=== PATIENT | male | born 1960 | race Hispanic/Latino ===

== ENCOUNTER 2018-11-16 17:39 | Emergency (ER) | payer OTHER ==
[~2018-11-16] VITALS: Ht 165.1 cm; Wt 68.0 kg
--- NOTE | 2018-11-16 21:07 | EKG ---
[facility] [address] [facility] [place], [place] [address] Signed Poor data quality, interpretation may be adversely affected Normal sinus rhythm Prolonged QT Abnormal ECG No previous ECGs available Confirmed by CORNELIO MONTOYA MD ([id number]) on 11/16/2018 9:07:17 PM Electronically Signed By: CORNELIO MONTOYA MD 11/16/18 2107 PATIENT NAME: NITISH MORGAN Electrocardiogram DATE OF : [birth year] PHYSICIAN: CORNELIO MONTOYA MD REPORT #: [id number] REPORT IS CONFIDENTIAL AND NOT TO BE RELEASED WITHOUT AUTHORIZATION
== END 2018-11-16 21:00 | disposition left against medical advice (07) ==
LOC: ED 17:39 → EDBD 17:41 → ED 21:00
DX: R07.89 Other chest pain (principal); F10.10 Alcohol abuse, uncomplicated; M54.9 Dorsalgia, unspecified; M79.602 Pain in left arm; M79.601 Pain in right arm; M79.605 Pain in left leg; M79.604 Pain in right leg; F17.200 Nicotine dependence, unspecified, uncomplicated; Z88.0 Allergy status to penicillin
CPT/HCPCS: 93005; 93010; 99283-25

== ENCOUNTER 2018-11-18 18:07 | Emergency (ER) | payer OTHER ==
[~2018-11-18] VITALS: Ht 165.1 cm; Wt 81.7 kg
--- OUTSIDE RECORDS SUMMARY | 2018-11-18 18:14 | XMS ---
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 - Patient verbally threatened care providers, staff or other patients. CRITERIA MET - 6 ED Visits in 6 Months - [facility] - Has Care Guidelines - [facility] - 3 Facilities in 90 Days - [facility] - 2 Visits in 30 Days CARE PROVIDERS CAITLYN DAWKINS [facility] Current PHONE: Unknown [facility]: [phone] [facility] Current PHONE: [phone] [facility] Current PHONE: Unknown [facility] PHONE: Unknown raymundo daniel Narcotics Prescriber Current PHONE: [phone] Guidelines Source: [facility] Guidelines Date: 06/27/2017 Care Recommendation: Pt. does not have a clearly identified PCP. Inquire, and assist pt. as necessary to establish PCP Discuss with patient perceived barriers to accessing primary care Patient to see PCP regarding all chronic and non-emergent medical concerns. Utilize ED director of social services to field counsel parent regarding appropriate use of ED services and accessing PCP during clinic hours . Please refrain from providing new medications for chronic conditions Please consider not prescribing any narcotic or benzodiazepine medications unless clinically necessary Offer substance abuse cessation resources to patient. Offer crisis services for referral to mental health or chemical dependency/alcohol treatment Pt utilizes ED for routine/non-emergent/chronic care Limit comfort/convenience items to medical necessary care E.D. VISIT COUNT (12 MO.) 2 [facility] 1 Legcharan Evans 1 [facility] H. 1 [facility] ([place]) 10 [facility] H. 13 [facility] 4 [facility] 3 [facility] 3 [facility] 15 [facility] ED 5 [facility] 2 HIREN Cortez TOTAL 60 NOTE: Visits indicate total known visits. ED/C VISIT TRACKING (12 MO.) 11/18/2018 18:11 [facility] [place] TYPE: Emergency COMPLAINT: - ANXIETY,HIGH BLOOD PRESSURE 11/16/2018 17:41 HIREN Krueger TYPE: Emergency COMPLAINT: - LEG PAIN 10/30/2018 10:54 David DUBO[facility] TYPE: Emergency DIAGNOSES: - Arm Injury - Neck Pain - Strain of muscle, fascia and tendon at neck level, initial encounter - Strain of unspecified muscle, fascia and tendon at shoulder and upper arm level, left arm, initial encounter - Arm Pain 10/25/2018 01:05 [facility] TYPE: Emergency DIAGNOSES: - Other psychoactive substance abuse, uncomplicated - Suicidal ideations - medical clearance for crisis - Medical Clearance 10/24/2018 20:09 [facility] TYPE: Emergency DIAGNOSES: - Homelessness - anxiety - Opioid abuse, uncomplicated - Generalized anxiety disorder 10/16/2018 00:46 Matt Maciel [place] TYPE: Emergency COMPLAINT: - MED CLEAR - ENCOUNTER OTH ADMIN EXAMINATIONS DIAGNOSES: 0. Encounter for other administrative examinations 1. Encounter for other administrative examinations 3. Alcohol abuse with intoxication, unspecified 4. Anxiety disorder, unspecified 5. Essential (primary) hypertension 6. Type 2 diabetes mellitus without complications 7. 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 TYPE: Emergency COMPLAINT: - ANXIETY 09/19/2018 16:[address] [facility] TYPE: Emergency COMPLAINT: - CHEST PAIN 09/19/2018 12:[address] [facility] TYPE: Emergency COMPLAINT: - RAN OUT OF MEDS 09/18/2018 20:[address] [facility] TYPE: Emergency COMPLAINT: - BODY PAIN 09/15/2018 10:[address] [facility] TYPE: Emergency COMPLAINT: - ANXIETY 09/12/2018 23:50 [facility] TYPE: Emergency DIAGNOSES: - Chest pain, unspecified - Chest Wall Pain - Other chronic pain 09/11/2018 09:40 Matt DUBOSE TYPE: Emergency COMPLAINT: - MED CLEARANCE - ENCOUNTER OTH ADMIN EXAMINATIONS DIAGNOSES: 0. Encounter for other administrative examinations 1. Encounter for other administrative examinations 3. Restlessness and agitation 4. Alcohol abuse, in remission 5. Other psychoactive substance abuse, uncomplicated 6. Personal history of nicotine dependence 7. Anxiety disorder, unspecified 8. Bipolar disorder, current episode depressed, mild or moderate severity, unspecified 9. Type 2 diabetes mellitus without complications 10. Homelessness 09/10/2018 21:31 Matt DUBOSE TYPE: Emergency COMPLAINT: - HYPERVENTILATING - HYPERVENTILATION DIAGNOSES: 0. Hyperventilation 1. Other stimulant abuse with intoxication, unspecified 3. Rhabdomyolysis 4. Anxiety disorder, unspecified 5. Bipolar disorder, current episode depressed, mild or moderate severity, unspecified 6. Type 2 diabetes mellitus without complications 7. Essential (primary) hypertension 8. Schizophrenia, unspecified 9. Personal history of nicotine dependence 09/07/2018 23:06 Matt Maciel [place] TYPE: Emergency COMPLAINT: - HYPERTENSION - ESSENTIAL PRIMARY HYPERTENSION - ANXIETY DISORDER UNSPECIFIED DIAGNOSES: 0. Essential (primary) hypertension 1. Reaction to severe stress, unspecified 4. Suicidal ideations 5. Alcohol dependence, uncomplicated 6. Bipolar disorder, current episode depressed, mild or moderate severity, unspecified 7. Type 2 diabetes mellitus without complications 8. Schizophrenia, unspecified 9. Essential (primary) hypertension 10. Patient's noncompliance with other medical treatment and regimen 11. Personal history of nicotine dependence 09/07/2018 16:56 [facility] TYPE: Emergency DIAGNOSES: - Hyperkalemia - Chest pain, unspecified - Chest Pain - Other specified abnormal findings of blood chemistry - Alcohol abuse, uncomplicated - Hypokalemia - Elevated blood-pressure reading, without diagnosis of hypertension 09/05/2018 07:57 [facility] TYPE: Emergency DIAGNOSES: - Cannabis abuse, uncomplicated - Chest pain, unspecified - Alcohol use, unspecified with intoxication, uncomplicated - chest pain - Alcohol abuse, uncomplicated - medical clearance 09/04/2018 23:[address] [facility] DIAGNOSES: - Chest Pain - Other chronic pain - Abnormal levels of other serum enzymes - Abnormal results of liver function studies - Chest pain, unspecified - Other pancytopenia - Other psychoactive substance abuse, uncomplicated Plus 40 More Visits INPATIENT VISIT TRACKING (12 MO.) 09/19/2018 16:[address] [facility] TYPE: Medical Surgical COMPLAINT: - CHEST PAIN 09/15/2018 10:[address] [facility] TYPE: Behavioral Health COMPLAINT: - acute psychosis 08/07/2018 22:37 [facility] TYPE: General Medicine DIAGNOSES: - Dorsalgia, unspecified - Anemia, unspecified - Chest pain, unspecified 07/10/2018 14[facility] [facility] TYPE: General Medicine DIAGNOSES: - Non-ST elevation (NSTEMI) myocardial infarction - Elevated blood-pressure reading, without diagnosis of hypertension - Abnormal levels of other serum enzymes - Chest pain, unspecified 06/14/2018 02:[address] [facility] TYPE: General Medicine DIAGNOSES: - Long QT syndrome - Abnormal levels of other serum enzymes - Urinary tract infection, site not specified - Alcohol use, unspecified with intoxication, uncomplicated - Chest pain, unspecified 06/11/2018 05:32 Matt Maciel [place] TYPE: Medical Surgical COMPLAINT: - ALCOHOL WITHDRAWAL, INCREASED TROPONIN DIAGNOSES: 0. Nausea with vomiting, unspecified 1. Alcohol dependence with withdrawal, unspecified 2. Rhabdomyolysis 3. Splenomegaly, not elsewhere classified 4. Calculus of gallbladder without cholecystitis without obstruction 5. Other specified abnormal findings of blood chemistry 6. Alcoholic cirrhosis of liver without ascites 7. Opioid abuse with unspecified opioid-induced disorder 8. Alcohol dependence with intoxication, unspecified 9. Blood alcohol level of 80-99 mg/100 ml 10. Unspecified viral hepatitis C without hepatic coma 11. Bipolar disorder, unspecified 12. Chronic pain syndrome 13. Essential (primary) hypertension 14. Type 2 diabetes mellitus without complications 15. Allergy status to penicillin 16. Bee allergy status 17. [facility]elessness [facility] TYPE: General Medicine DIAGNOSES: - Other psychoactive substance dependence, uncomplicated - Hepatic failure, unspecified without coma - Dehydration - Rhabdomyolysis [email or web address]
== END 2018-11-18 23:00 | disposition home or self-care (01) ==
LOC: ED 18:07
DX: F60.3 Borderline personality disorder (principal); I10 Essential (primary) hypertension; F19.90 Other psychoactive substance use, unspecified, uncomplicated; F17.200 Nicotine dependence, unspecified, uncomplicated; Z88.0 Allergy status to penicillin
CPT/HCPCS: 36415; 80053; 80176; 81001; 84443; 85025; 99283; G0480